=== PATIENT | female | born 1945 | race Asian ===

== ENCOUNTER → 2020-08-15 | Outpatient (CLI) | payer MEDICARE, MEDICAID | LOC: VAS 10:44 | DX: M79.89 Other specified soft tissue disorders (principal) ==

== ENCOUNTER → 2021-08-16 | Outpatient (CLI) | payer MEDICARE, MEDICAID | LOC: VAS 12:53 → RAD 13:00 | DX: M79.661 Pain in right lower leg (principal); M79.89 Other specified soft tissue disorders ==